=== PATIENT | female | born 1965 ===

== ENCOUNTER 2023-01-15 10:15 | Outpatient (REF) | payer BC, SELFPAY | END 2023-01-15 10:16 | disposition home or self-care (01) | LOC: HO.SH 10:15 | PROVIDERS: Visit Provider Internal Medicine | DX: Z01.118 Encounter for examination of ears and hearing with other abnormal findings (principal); H90.3 Sensorineural hearing loss, bilateral; H93.13 Tinnitus, bilateral | CPT/HCPCS: 92557; 92625 ==